=== PATIENT | female | born 1980 | race Caucasian/White ===

== ENCOUNTER 2024-04-25 10:50 | Inpatient (IN) | payer MEDICAID ==
[~2024-04-25] VITALS: Ht 157.5 cm; Wt 115.7 kg
[2024-04-25] MEDS ORDERED: METOCLOPRAMIDE HCL 10 MG/2 ML VIAL ONE ×2 (11:51→16:18)
[2024-04-25] MEDS ORDERED: KETOROLAC TROMETHAMINE 15 MG INJ ONE ×2 (11:51→16:18)
[2024-04-25] MEDS: METOCLOPRAMIDE HCL 10 MG/2 ML VIAL IV ONE ×2 (11:55→16:24)
[2024-04-25] MEDS: KETOROLAC TROMETHAMINE 15 MG INJ IVP ONE ×3 (11:55→19:15)
[2024-04-25 12:19] LABS: BASOPHILS # (AUTO) 0.2 K/UL (0.0-0.2); BASOPHILS % (AUTO) 1.7 % (0.0-2.0); EOSINOPHILS # (AUTO) 0.1 K/uL (0.0-0.7); EOSINOPHILS % (AUTO) 1.2 % (0.0-7.0); HEMOGLOBIN 11.6 g/dL (10.9-14.3); LYMPHOCYTES # (AUTO) 2.4 K/uL (0.8-4.8); LYMPHOCYTES % (AUTO) 22.2 % (20.5-51.5); MEAN CORPUSCULAR HEMOGLOBIN 30.5 uug (24.7-32.8); MEAN CORPUSCULAR HGB CONC 32 g/dL (32.3-35.6); MEAN CORPUSCULAR VOLUME 94.5 fL (75.5-95.3); MONOCYTES # (AUTO) 0.8 K/uL (0.1-1.30); NEUTROPHILS # (AUTO) 7.4 K/uL (1.8-8.9); NEUTROPHILS % (AUTO) 67.9 % (38.5-71.5); PLATELET COUNT (AUTO) 271 K/uL (179-408); RED BLOOD CELL COUNT(AUTO) 3.81 MIL/uL (3.63-4.92); RED CELL DISTRIBUTION WIDTH 14.8 % (12.3-17.7); WHITE BLOOD COUNT (AUTO) 10.9 K/uL (3.8-11.8)
[2024-04-25 12:30] LABS: CALCIUM 9.1 mg/dL (8.5-10.1); CARBON DIOXIDE 24 mmol/L (21-32); CHLORIDE 108 mmol/L (98-107); CREATININE 0.9 mg/dL (0.6-1.3); GLUCOSE 82 mg/dL (74-106); POTASSIUM 3.9 mmol/L (3.5-5.1); SODIUM SERUM 143 mmol/L (136-145); UREA NITROGEN, BLOOD 19 mg/dL (7-18)
[2024-04-25 12:32] LABS: DIFFERENTIAL COMMENT 1
[2024-04-25 12:34] LABS: *BILIRUBIN,URIN 1+ (NEGATIVE); *CLARITY,URINE CLEAR (CLEAR); *COLOR,URINE YELLOW (YELLOW); *KETONES,URINE NEGATIVE (NEGATIVE); *PROTEIN,URINE TRACE (NEGATIVE); *UROBILINOGEN,URINE 0.2 E.U./dl (NORMAL); LEUKOCYTE ESTERASE ,URINE NEGATIVE (NEGATIVE); NITRITE, URINE NEGATIVE (NEGATIVE); PH,URINE 5.5 (5.0-8.0); UGLUCOSE NEGATIVE (NEGATIVE)
[2024-04-25 12:35] LABS: *BLOOD, URINE TRACE (NEGATIVE)
[2024-04-25 12:40] LABS: ALANINE AMINOTRANSFERASE 17 U/L (14-59); ALBUMIN 3.6 g/dL (3.4-5.0); ALKALINE PHOSPHATASE 64 U/L (50-136); ASPARTATE AMINOTRANSFERASE 12 U/L (15-37); BILIRUBIN,DIRECT 0.1 mg/dL (0.0-0.2); BILIRUBIN,TOTAL 0.3 mg/dL (0.2-1.0); LIPASE 24 U/L (16-77); TOTAL PROTEIN, SERUM 7.6 g/dL (6.4-8.2)
[2024-04-25 12:42] LABS: PREGNANCY TEST SERUM QUAN 2 miul/L (0-6)
[2024-04-25 13:10] LABS: BACTERIA,URINE FEW /HPF (NONE SEEN); RBC,URINE 0-3 /HPF (0-3); SQUAMOUS EPITHELIAL CELL,UR MODERATE /HPF (NONE SEEN); WBC,URINE 0-3 /HPF (0-3)
[2024-04-25] MEDS: LORAZEPAM 2 MG/1 ML VIAL IV ONE (19:21)
[2024-04-25] MEDS ORDERED: MORPHINE SULFATE 4 MG/1 ML DISP.SYRIN ONE (21:37)
[2024-04-25] MEDS: MORPHINE SULFATE 4 MG/1 ML DISP.SYRIN IV ONE (21:45)
[2024-04-26] MEDS ORDERED: KETOROLAC TROMETHAMINE 15 MG INJ ONE (00:26)
[2024-04-26] MEDS ORDERED: HYDR200T81 PO (00:41)
[2024-04-26] MEDS ORDERED: LOPE2TAB25 PO (00:41)
[2024-04-26] MEDS ORDERED: PRED20TA PO (00:41)
[2024-04-26] MEDS ORDERED: BUTA1CAP46 PO (00:41)
[2024-04-26] MEDS ORDERED: LISI1TAB32 PO (00:41)
[2024-04-26] MEDS ORDERED: FAMO40TA7 PO (00:41)
[2024-04-26] MEDS: KETOROLAC TROMETHAMINE 15 MG INJ IVP ONE (00:51)
[2024-04-26] MEDS ORDERED: REMEDY ESSENTIAL ZINC PASTE 113 GM TP PRN (01:30)
[2024-04-26] MEDS ORDERED: ENOXAPARIN SODIUM 40 MG/0.4 ML DISP.SYRIN SQ SCH (01:30)
[2024-04-26] MEDS ORDERED: ONDANSETRON 4 MG/2 ML VIAL IV PRN (01:30)
[2024-04-26] MEDS: MORPHINE SULFATE 4 MG/1 ML DISP.SYRIN IV PRN (01:40)
[2024-04-26 02:20] VITALS: BP 89/51; TEMP 97.7; O2SAT 99
[2024-04-26] MEDS: IV NS 1000 ML 1,000 ML IV ONE (02:26)
[2024-04-26] MEDS: diphenhydrAMINE 50 MG CAPSULE PO ONE (03:12)
[2024-04-26] MEDS: ACETAMINOPHEN 325 MG TABLET PO ONE (03:14)
[2024-04-26] MEDS: LORAZEPAM 2 MG/1 ML VIAL IV ONE (03:43)
[2024-04-26 06:32] VITALS: BP 96/55; TEMP 97.6; O2SAT 95
[2024-04-26 07:05] LABS: BASOPHILS % (AUTO) 0.7 % (0.0-2.0); EOSINOPHILS # (AUTO) 0.2 K/uL (0.0-0.7); EOSINOPHILS % (AUTO) 3.2 % (0.0-7.0); HEMATOCRIT 31.4 % (31.2-41.9); HEMOGLOBIN 10.5 g/dL (10.9-14.3); LYMPHOCYTES # (AUTO) 2.6 K/uL (0.8-4.8); LYMPHOCYTES % (AUTO) 42.4 % (20.5-51.5); MEAN CORPUSCULAR HEMOGLOBIN 31.4 uug (24.7-32.8); MEAN CORPUSCULAR HGB CONC 34 g/dL (32.3-35.6); MEAN CORPUSCULAR VOLUME 93.7 fL (75.5-95.3); MONOCYTES # (AUTO) 0.6 K/uL (0.1-1.30); MONOCYTES % (AUTO) 9.8 % (0.0-11.0); NEUTROPHILS # (AUTO) 2.7 K/uL (1.8-8.9); NEUTROPHILS % (AUTO) 43.9 % (38.5-71.5); PLATELET COUNT (AUTO) 252 K/uL (179-408); RED BLOOD CELL COUNT(AUTO) 3.35 MIL/uL (3.63-4.92); RED CELL DISTRIBUTION WIDTH 14.6 % (12.3-17.7); WHITE BLOOD COUNT (AUTO) 6.3 K/uL (3.8-11.8)
[2024-04-26 07:14] LABS: DIFFERENTIAL COMMENT 1
[2024-04-26 07:16] LABS: AMYLASE 28 U/L (25-115); CALCIUM 8.4 mg/dL (8.5-10.1); CARBON DIOXIDE 27 mmol/L (21-32); CHLORIDE 110 mmol/L (98-107); CREATININE 0.4 mg/dL (0.6-1.3); GLUCOSE 84 mg/dL (74-106); LIPASE 19 U/L (16-77); MAGNESIUM 2.1 mg/dL (1.8-2.4); PHOSPHOROUS 4.1 mg/dL (2.5-4.9); POTASSIUM 3.5 mmol/L (3.5-5.1); SODIUM SERUM 144 mmol/L (136-145); UREA NITROGEN, BLOOD 19 mg/dL (7-18)
[2024-04-26 08:26] VITALS: BP 103/67; TEMP 97.5; O2SAT 98
[2024-04-26] MEDS: ENOXAPARIN SODIUM 40 MG/0.4 ML DISP.SYRIN SQ SCH (09:21)
[2024-04-26] MEDS: PANTOPRAZOLE SODIUM 40 MG VIAL IV SCH (09:21)
[2024-04-26] MEDS ORDERED: ACETAMINOPHEN/DIPHENHYDRAMINE TABLET PO PRN (21:00)
== END 2024-04-26 12:20 | disposition left against medical advice (07) ==
LOC: ER 10:50 → MEDSURG3 04-26 01:13
PROVIDERS: ADMIT Nurse Practitioner Family; ATTEND Internal Medicine
DX: K80.61 Calculus of gallbladder and bile duct with cholecystitis, unspecified, with obstruction (principal); I95.9 Hypotension, unspecified; M32.10 Systemic lupus erythematosus, organ or system involvement unspecified; D64.9 Anemia, unspecified; Z59.01 Sheltered homelessness; E66.01 Morbid (severe) obesity due to excess calories; Z68.42 Body mass index [BMI] 45.0-49.9, adult; Z98.84 Bariatric surgery status; M79.7 Fibromyalgia; M17.0 Bilateral primary osteoarthritis of knee; F41.9 Anxiety disorder, unspecified; F32.A Depression, unspecified; Z79.899 Other long term (current) drug therapy; Z53.29 Procedure and treatment not carried out because of patient's decision for other reasons
CPT/HCPCS: 36415; 78445; 83690; 83735; 84100; 84484; 85025; 85730; 93005; A9537; C9113; G0378; J1650; J1885; J2060; J2270; J2765; Q0163